=== PATIENT | male | born 1955 | race Caucasian/White ===

== ENCOUNTER → 2019-11-28 | Outpatient (CLI) | payer MEDICARE ==
[~2019-11-28] MED LIST: ACETAMINOPHEN325 M1 PO; ADULT LOW DOSE81 MG PO; ASPIRIN325 PO; BUPROPION XL150 MG PO; BUPROPION XL300 MG PO; CALCIUM 600 +1 EAC1 PO; CELEXA 10 MG TA10 M1 PO; CITALOPRAM PO; CLONAZEPAM 0.50.5 M1; CLONAZEPAM 1 MG1 M1 PO; CLONAZEPAM PO; CLONIDINE0.1 PO; COLACE100 MG PO; CRESTOR10 MG PO; CRESTOR20 MG; CYCLOBENZAPRINE30 MG PO; DESYREL150 MG PO; ENOXAPARIN30 MG/0.3 SUBQ; ENOXAPARIN40 MG/0.1 SUBQ; ESCITALOPRAM PO; FISH OIL 1,0001 EAC5 PO; FISH OIL 1,001000 M3 PO; GLUCOPHAGE500 MG PO; HYDROCODON-ACE1 EAC7 PO; HYDROCODON-ACE1 EAC8 PO; HYDROCODONE/APAP PO; IRON325 PO; LIPITOR 40 MG T40 M1 PO; LISINOPRIL PO; LISINOPRIL20 MG PO; MELATONIN3 MG PO; MELATONIN5 M2; MILK OF MA2400 MG/10 PO; MIRALAX17 GM PO; MULTIVITAMINS PO; NEURONTIN 300300 M1 PO; NEURONTIN 300M300 M2 PO; OMEPRAZOLE 20 M20 M1 PO; OXYCODONE HCL 55 MG PO; OXYCODONE HCL5 M1 PO; SYMBICORT160 MCG/4.; SYMBICORT160 MCG/4. INH; TAMSULOSIN HCL0.4 M1 PO; TRAMADOL 50 MG50 MG PO; TYLENOL EXTRA500 MG PO; VITAMIN D PO; VITAMINC500 PO; WAL-PHED PO
--- NOTE | 2019-12-14 09:35 | PAINCON ---
[address] [address] PAIN MANAGEMENT CONSULTATION Name: VIVIANESHELLIE Bridger Room: [facility]#: [id number] Admission: 11/28/19 Attend Phys: Luther Brunson MD Discharge: Date of : 51 Report #: [id number] THIS REPORT FOR: //name// cc: Rocio Harrington MD, Allison Louise MD ~ THIS REPORT FOR: //name// CC: Rocio Brunson DATE OF SERVICE: 11/28/2019 CHIEF COMPLAINT: Chronic intractable knee pain. HISTORY: The patient is a 64-year-old gentleman who has been referred to the pain clinic for evaluation. He has a long history dating back to 2016. It involves his left leg. He fell in 2015. He states that he was at the [employer], shattered his left knee. Had shooting pain as a result of the trauma. Had a fariba placed in the left upper leg. He has lived in [place] as well as in [place]. He moved here from [place] to stay in July. He has had a number of surgeries on his left knee. He did have an episode of infection regarding the knee. He was told that there is a possibility that if he had another surgery and it became infected, he may have to have his leg amputated. He has had about 5 to 6 surgeries regarding this leg. He has tried a number of methods to try and help the pain. He was provided with cool radiofrequency. That did not help. He has had cortisone shots. He feels that medications with opioids have been helpful. Notes that the pain is worse with walking, sitting, standing, climbing stairs, lifting and bending. Hydrocodone 7.5 mg tablets have been helpful. He has been using these since August. His surgeon has told him that he would not recommend surgery at this time given the amount of problems he has had with his knee. ALLERGIES: ANCEF. CURRENT MEDICATIONS: Gabapentin 300 mg, Tylenol 500 mg, hydrocodone 7.5 mg 1 p.o. t.i.d., Lipitor 40 mg, lisinopril 40 mg, metformin 500 mg, omeprazole 20 mg, bupropion SR 150 mg x 2, escitalopram 20 mg, trazodone 50 mg at bedtime, vitamin D, Tylenol 500 mg has used 6-8 tablets per day, fish oil 1000 mg. PAST MEDICAL HISTORY: Diabetes, hypertension, joint disease/arthritis, central sleep apnea. PAST SURGICAL HISTORY: Left rotator cuff 1996, right rotator cuff 2000, left big toe 2015, right big toe 2006, back surgery cage is placed 2007, left knee replacement 2010, removal of left knee infection in 2010, left knee 2012, [place] [address] PAIN MANAGEMENT CONSULTATION Name: SHELLIE PAN Room: [facility]#: [id number] Admission: 11/28/19 Attend Phys: Luther Brunson MD Discharge: Date of : 51 Report #: [id number] urethral 2012, cracked femur 2013, stitches left ankle 2013, shattered femur 09/2015, double hernia repair 2017, stitches left elbow 2017, left knee 2018, loosened hardware 2017. The patient told no more surgeries on the left knee in 06/2018. SOCIAL HISTORY: The patient is a retired worker at [employer] for 30 years. He is not working at this juncture. REVIEW OF SYSTEMS: Per HPI. LABORATORY DATA: The patient has a number of images of his left knee. PAIN CLINIC ASSESSMENT AND PQRS: 1. Height 5 feet 11 inches, weight 253 pounds, BMI is to be calculated. 2. Saturation 95%, temperature 98. 3. Vital signs: Blood pressure 132/82, heart rate 86, respiratory rate 18, room air saturation as we already stated ____. 4. Pain intensity is 7-8/10. 5. Fall history: The patient has not fallen in the last month. 6. Blood thinner: The patient is not on a blood thinning medication. 7. Hypertension: The patient is being treated for hypertension. 8. Opioids greater than 6 weeks: The patient receives medications from his primary. 9. Risk assessment tool: Low for opioid use. 10. Functional assessment tool: Reviewed. 11. Recreational drug use: The patient denies. 12. Tobacco: The patient denies use of tobacco. 13. Alcohol: The patient denies frequent use of alcoholic beverages. PHYSICAL EXAMINATION: GENERAL: The patient is a well-developed, well-nourished, alert white male. Appears his stated age. He is alert and oriented x 3. His affect is appropriate. Speech is fluent. HEENT: Normocephalic, atraumatic. Extraocular eye muscles intact. Sclerae nonicteric. Mucous membranes are moist. NECK: Without adenopathy or JVD. The patient has facial covering in place. HEART: Regular rate. LUNGS: Clear. ABDOMEN: Nontender. MUSCULOSKELETAL: Upper extremity muscle strength judged to be 5-/5 for the major muscle groups in the upper extremity. Lower extremity, the patient has a significantly swollen left leg with decreased range of motion. Evidence of numerous surgeries are present. The patient complains of pain and discomfort with movement and rates it as 7-8/10. IMPRESSION: [facility] [address] [place] [address] PAIN MANAGEMENT CONSULTATION Name: SHELLIE PAN Room: [facility] WadeStefany#: [id number] Admission: 11/28/19 Attend Phys: Luther Brunson MD Discharge: Date of : 51 Report #: [id number] 1. Left knee status post numerous surgeries. 2. Diabetes. 3. Hypertension. 4. Joint disease/arthritis. 5. Central sleep apnea. RECOMMENDATIONS: At this juncture, the patient continues to have some low back pain. He also has pain, which has been quite problematic because of his chronic left knee. At this juncture, the patient is not a surgical candidate. He feels that the hydrocodone medication 7.5 mg 3 times a day, seems to be efficacious. We will have the patient try hydrocodone 7.5 mg 1 p.o. t.i.d. He will follow up in the near future as needed. He does have a long and complicated medical history. We would like to thank you for letting us participate in his care. We hope he continues to improve. <ELECTRONICALLY SIGNED> By: Luther Brunson MD 12/14/19 0935 [id number]. Roman Brunson MD /PMT
== END ==
LOC: M.PC 09:20
PROVIDERS: ATTEND Anesthesiology Pain Medicine
DX: M25.562 Pain in left knee (principal); G89.29 Other chronic pain; E11.9 Type 2 diabetes mellitus without complications; I10 Essential (primary) hypertension; M19.90 Unspecified osteoarthritis, unspecified site; G47.39 Other sleep apnea; Z79.899 Other long term (current) drug therapy; Z79.891 Long term (current) use of opiate analgesic

== ENCOUNTER → 2020-01-02 | Outpatient (CLI) | payer MEDICARE ==
--- NOTE | 2020-01-03 15:45 | PAINCON ---
[address] [address] PAIN MANAGEMENT CONSULTATION Name: SHELLIE PAN [id number] Admission: 01/02/20 Attend Phys: Luther Brunson MD Discharge: Date of : 51 Report #: [id number] THIS REPORT FOR: //name// cc: Rocio Harrington MD, Allison Louise MD ~ CC: Rocio Brunson DATE OF SERVICE: 01/02/2020 PRIMARY CARE PHYSICIAN: Dr. Rocio Harrington. CHIEF COMPLAINT: The medication has been helpful this last month. HISTORY: The patient is a 64-year-old gentleman who has been seen in the Pain Clinic. He has a long history of back pain and problems since 2016. He has pain involving his left leg. He fell in 2016. He shattered his left knee. He unfortunately had an infection in his knee. He has had quite a number of surgeries involving his knee. He has had about 5-6 surgeries at this point. He has tried cool radiofrequency treatment. He has had cortisone shots. Overall, he feels that his pain continues to be problematic. He was treated with hydrocodone for pain relief over the last month. He has noticed an improvement in his pain. Rates his pain as a 3/10. He feels that overall it is about 75-80% improved with use of his medications. He would like to continue with the medications. ALLERGIES: ANCEF. CURRENT MEDICATIONS: Gabapentin 300 mg 1 p.o. t.i.d., Tylenol 500 mg, hydrocodone 7.5 mg 1 p.o. t.i.d., Lipitor 40 mg, lisinopril 40 mg, metformin 500 mg, omeprazole 20 mg, bupropion SR 150 mg x 2, escitalopram 20 mg, tizanidine 50 mg at bedtime, vitamin D, Tylenol 500 mg 6-8 tablets per day in the past, fish oil 1000 mg. PAIN CLINIC ASSESSMENT AND PQRS: 1. Height 5 feet 11 inches, weight 258 pounds, BMI is 36. 2. Vital signs: Blood pressure 129/73, heart rate 99, respiratory rate 16, room air saturation 95%, temperature 97.8. 3. Pain intensity 05/15. 4. Fall history: The patient has not fallen since we saw him last. 5. Blood thinner. The patient is not on a blood thinning medication. 6. Hypertension. The patient is being treated for hypertension. 7. Opioids greater than 6 weeks. The patient receives medication from his primary. 8. Risk assessment tool, low for opioid use. 9. Functional assessment tool, [place] [address] PAIN MANAGEMENT CONSULTATION Name: SHELLIE PAN Room: [facility]#: [id number] Admission: 01/02/20 Attend Phys: Luther Brunson MD Discharge: Date of : 51 Report #: [id number] 10. Tobacco: The patient denies use of tobacco. 11. Alcohol. The patient denies frequent use of alcoholic beverages. PHYSICAL EXAMINATION: GENERAL: The patient is a well-developed, well-nourished white male. Appears his stated age. He is alert and oriented x 3. His affect is appropriate. Speech is fluent. HEENT: Normocephalic, atraumatic. Extraocular eye muscles intact. The patient is wearing a facial covering. NECK: Without adenopathy. HEART: Regular rate. LUNGS: Clear. ABDOMEN: Nontender. MUSCULOSKELETAL: Upper extremity muscle strength judged to be 5-/5 for the major muscle groups in the upper extremity. The patient has some swelling in his left leg with decreased range of motion. He has a well-healed scar in the anterior portion of the leg and knee. The patient complains of an increased discomfort with walking, sitting, standing, climbing stairs, bending and lifting. IMPRESSION: 1. Left knee status post numerous surgeries. 2. Diabetes. 3. Hypertension. 4. Joint disease/arthritis. 5. Central sleep apnea. RECOMMENDATIONS: We discussed treatment options with the patient. At this juncture, we will continue with his medications of hydrocodone. He feels that the pain is about 75-80% improved. He would like to continue with the medication. He does not have any problems with thinking. He is able to think clearly. He does not have any problems with driving his car. We will continue with his medications. He will call us if he has any concerns. He will also tell us if he has any problems with increasing sleeping problems given the history of sleep apnea. We would like to thank you for letting us participate in his care. We hope he continues to improve. <ELECTRONICALLY SIGNED> By: Luther Brunson MD 01/03/20 1545 [id number]. Roman Brunson MD /MILADIS
== END ==
LOC: M.PC 09:19
PROVIDERS: ATTEND Anesthesiology Pain Medicine
DX: M79.605 Pain in left leg (principal); E11.9 Type 2 diabetes mellitus without complications; I10 Essential (primary) hypertension; G47.33 Obstructive sleep apnea (adult) (pediatric); M19.90 Unspecified osteoarthritis, unspecified site; Z96.652 Presence of left artificial knee joint

== ENCOUNTER → 2020-01-30 | Outpatient (CLI) | payer MEDICARE ==
--- NOTE | 2020-02-08 14:42 | PAINCON ---
[address] [address] PAIN MANAGEMENT CONSULTATION Name: SHELLIE PAN Room: [facility]#: [id number] Admission: 01/30/20 Attend Phys: Luther Brunson MD Discharge: Date of : 51 Report #: [id number] THIS REPORT FOR: //name// cc: Willard Arevalo MD, Anthony MD ~ CC: Rocio Brunson DATE OF SERVICE: 01/30/2020 CHIEF COMPLAINT: Left leg pain. HISTORY: The patient is a 64-year-old gentleman who has been followed in the pain clinic because of left knee and leg pain. As you may recall, he has a long history of back pain that started in 2016. He has pain in the left leg. He fell and shattered his left knee. He developed an unfortunate infection. He has undergone a number of surgeries on his knee. He has had about 6 surgeries at this juncture. He has tried cool radiofrequency treatment. He has had cortisone shots. Overall, his pain continues to be problematic. He has been using hydrocodone to help with the pain. Notes that his pain is about 75-80% improved with his current medical regimen. He has returned today to the pain clinic and would like to continue his medication course. ALLERGIES: ANCEF. CURRENT MEDICATIONS: Gabapentin 300 mg 1 p.o. t.i.d., Tylenol 500 mg, hydrocodone 7.5 mg 1 p.o. t.i.d., Lipitor 40 mg, lisinopril 40 mg, metformin 500 mg, omeprazole 20 mg, bupropion SR 150 mg x 2, escitalopram 20 mg, tizanidine 50 mg at bedtime, vitamin D, Tylenol 500 mg 6-8 tablets per day, has been used in the past, fish oil 1000 mg. PAIN CLINIC ASSESSMENT AND PQRS: 1. Height 5 feet 11 inches, weight 260 pounds, BMI is 36. 2. Vital signs: Blood pressure 139/75, heart rate 86, respiratory rate 16, room air saturation 96%, temperature 97.9. 3. Pain intensity 04/17. 4. Fall history: The patient has not fallen since we saw him last. 5. Blood thinner. The patient is not on a blood thinning medication. 6. Hypertension. The patient is being treated for hypertension. 7. Opioids greater than 6 weeks. The patient receives medication from the pain clinic. 8. Risk assessment tool, low for opioid use. 9. Functional assessment tool, reviewed. 10. Tobacco: The patient denies use of tobacco. 11. Alcohol. The patient denies frequent [place] [address] PAIN MANAGEMENT CONSULTATION Name: SHELLIE PAN Room: [facility]#: [id number] Admission: 01/30/20 Attend Phys: Luther Brunson MD Discharge: Date of : 51 Report #: [id number] PHYSICAL EXAMINATION: GENERAL: The patient is a well-developed, well-nourished white male. Appears his stated age. He is alert and oriented x 3. His affect is appropriate. Speech is fluent. HEENT: Normocephalic, atraumatic. Extraocular eye muscles intact. The patient is wearing a facial covering. NECK: Without adenopathy. HEART: Regular rate. LUNGS: Clear. ABDOMEN: Nontender. MUSCULOSKELETAL: Upper extremity muscle strength judged to be 5-/5 for the major muscle groups in the upper extremity. The patient has some swelling in the left leg and decreased range of motion in his knee. He has well-healed scar in the anterior portion of his knee. Does complain of some increased discomfort with walking, sitting, standing, climbing stairs, bending and lifting. IMPRESSION: 1. Left knee status post 6 surgeries. 2. Diabetes. 3. Hypertension. 4. Joint disease/arthritis. 5. Central sleep apnea. RECOMMENDATIONS: We discussed treatment options with the patient. At this juncture, he feels that his medications of hydrocodone are helpful. We will also continue with the use of gabapentin to help control the pain. He will use tizanidine at bedtime to help with muscle spasms. A script for his medication of [place] 7.5 mg 1 p.o. t.i.d. will be rewritten. He is aware that opioid medications can become less effective as time goes on. He is aware that certain patients have become addicted to these medications and some have committed suicide. At this juncture, he feels that his medications are working well and he would like to continue their use. A script for these medications have been provided and sent to his pharmacy. He is able to think clearly. He does not have any problems with being over sedated or noting problem with his sensorium. <ELECTRONICALLY SIGNED> By: Luther Brunson MD 02/08/20 [id number] [id number]. Roman Brunson MD /nt
== END ==
LOC: M.PC 09:20
PROVIDERS: ATTEND Anesthesiology Pain Medicine
DX: M25.562 Pain in left knee (principal); M79.605 Pain in left leg; I10 Essential (primary) hypertension; E11.9 Type 2 diabetes mellitus without complications

== ENCOUNTER → 2020-02-27 | Outpatient (CLI) | payer MEDICARE | LOC: M.PC 10:06 | PROVIDERS: ATTEND Anesthesiology Pain Medicine | DX: E11.9 Type 2 diabetes mellitus without complications (principal); I10 Essential (primary) hypertension; G47.31 Primary central sleep apnea; M79.605 Pain in left leg; M25.562 Pain in left knee; M19.90 Unspecified osteoarthritis, unspecified site ==

== ENCOUNTER → 2020-04-04 | Outpatient (CLI) | payer MEDICARE | LOC: M.PC 10:03 | PROVIDERS: ATTEND Anesthesiology Pain Medicine | DX: M25.562 Pain in left knee (principal); E11.9 Type 2 diabetes mellitus without complications; I10 Essential (primary) hypertension; M19.90 Unspecified osteoarthritis, unspecified site; G47.30 Sleep apnea, unspecified ==

== ENCOUNTER → 2020-05-07 | Outpatient (CLI) | payer MEDICARE | LOC: M.PC 05-02 11:00 | PROVIDERS: ATTEND Anesthesiology Pain Medicine | DX: M25.562 Pain in left knee (principal); E11.9 Type 2 diabetes mellitus without complications; I10 Essential (primary) hypertension; M19.90 Unspecified osteoarthritis, unspecified site; G47.30 Sleep apnea, unspecified ==

== ENCOUNTER → 2020-06-04 | Outpatient (CLI) | payer MEDICARE ==
[~2020-06-04] MED LIST changes: -ESCITALOPRAM PO; +GLIPIZIDE-METF1 EAC2 PO
== END ==
LOC: M.PC 11:04
PROVIDERS: ATTEND Anesthesiology Pain Medicine
DX: G89.29 Other chronic pain (principal); M79.605 Pain in left leg; M25.562 Pain in left knee; E11.9 Type 2 diabetes mellitus without complications; I10 Essential (primary) hypertension; M19.90 Unspecified osteoarthritis, unspecified site; G47.31 Primary central sleep apnea; Z98.1 Arthrodesis status; Z98.890 Other specified postprocedural states; Z68.37 Body mass index [BMI] 37.0-37.9, adult; Z96.652 Presence of left artificial knee joint; Z88.8 Allergy status to other drugs, medicaments and biological substances; Z79.891 Long term (current) use of opiate analgesic; Z79.899 Other long term (current) drug therapy

== ENCOUNTER → 2020-08-13 | Outpatient (CLI) | payer MEDICARE ==
[~2020-08-13] MED LIST changes: +BUSPIRONE HCL10 MG PO; +HYDROXYZINE HCL50 MG PO
== END ==
LOC: M.PC 07-30 10:40
PROVIDERS: ATTEND Anesthesiology Pain Medicine
DX: M25.562 Pain in left knee (principal); E11.9 Type 2 diabetes mellitus without complications; I10 Essential (primary) hypertension; M19.90 Unspecified osteoarthritis, unspecified site; G47.30 Sleep apnea, unspecified; Z72.89 Other problems related to lifestyle; Z88.1 Allergy status to other antibiotic agents; Z79.891 Long term (current) use of opiate analgesic; Z79.899 Other long term (current) drug therapy

== ENCOUNTER → 2020-10-08 | Outpatient (CLI) | payer MEDICARE | LOC: M.PC 10:41 | PROVIDERS: ATTEND Anesthesiology Pain Medicine | DX: M25.562 Pain in left knee (principal); E11.9 Type 2 diabetes mellitus without complications; I10 Essential (primary) hypertension; M19.90 Unspecified osteoarthritis, unspecified site; G47.30 Sleep apnea, unspecified; Z79.899 Other long term (current) drug therapy; Z79.891 Long term (current) use of opiate analgesic ==

== ENCOUNTER → 2020-12-03 | Outpatient (CLI) | payer MEDICARE | LOC: M.PC 10:48 | PROVIDERS: ATTEND Anesthesiology Pain Medicine | DX: E11.9 Type 2 diabetes mellitus without complications (principal); I10 Essential (primary) hypertension; M19.90 Unspecified osteoarthritis, unspecified site; M79.605 Pain in left leg; M25.562 Pain in left knee; F41.9 Anxiety disorder, unspecified; G47.30 Sleep apnea, unspecified; Z96.652 Presence of left artificial knee joint; Z88.8 Allergy status to other drugs, medicaments and biological substances; Z79.899 Other long term (current) drug therapy ==

== ENCOUNTER → 2021-01-21 | Outpatient (CLI) | payer MEDICARE ==
[~2021-01-21] MED LIST changes: -BUSPIRONE HCL10 MG PO; +BUSPIRONE HCL15 MG PO; +REMERON15 M2 PO
== END ==
LOC: M.PC 11:03
PROVIDERS: ATTEND Anesthesiology Pain Medicine
DX: M25.562 Pain in left knee (principal); M79.605 Pain in left leg; F41.9 Anxiety disorder, unspecified; E11.9 Type 2 diabetes mellitus without complications; I10 Essential (primary) hypertension; M19.90 Unspecified osteoarthritis, unspecified site; G47.30 Sleep apnea, unspecified; Z88.8 Allergy status to other drugs, medicaments and biological substances; Z79.84 Long term (current) use of oral hypoglycemic drugs; Z79.899 Other long term (current) drug therapy

== ENCOUNTER → 2021-04-15 | Outpatient (CLI) | payer MEDICARE | LOC: M.PC 10:45 | PROVIDERS: ATTEND Anesthesiology Pain Medicine | DX: M25.562 Pain in left knee (principal); F41.9 Anxiety disorder, unspecified; E11.9 Type 2 diabetes mellitus without complications; I10 Essential (primary) hypertension; M19.90 Unspecified osteoarthritis, unspecified site; G47.31 Primary central sleep apnea; Z79.891 Long term (current) use of opiate analgesic; Z88.8 Allergy status to other drugs, medicaments and biological substances; Z72.89 Other problems related to lifestyle ==